=== PATIENT | female | born 1950 | race Caucasian/White ===

== ENCOUNTER 2022-11-16 10:43 | Outpatient (CLI) | payer BC, SELFPAY ==
--- NOTE | 2022-11-16 11:00 | ECG_ITS ---
Measurements Intervals [place] Rate: 98 P: OK: 0 QRS: -16 QRSD: 94 T: 16 QT: 350 QTc: 449 Interpretive Statements ATRIAL FIBRILLATION POOR R WAVE PROGRESSION, CONSIDER ANTERIOR INFARCT INFERIOR INFARCT, AGE INDETERMINATE BASELINE ARTIFACT- I, II, III, AVR, AVL, V3-V6 ABNORMAL ECG NO PREVIOUS ECG AVAILABLE FOR COMPARISON Electronically Signed On 11-16-2022 11:31:29 CDT by Silviano Lewis D.O.
[2022-11-16 11:48] LABS: Amylase 84 U/L (30-110); Lipase 140 U/L (23-300)
== END 2022-11-16 10:44 | disposition home or self-care (01) ==
PROVIDERS: PCP Internal Medicine; Visit Provider Surgery
DX: K80.10 Calculus of gallbladder with chronic cholecystitis without obstruction (principal); I10 Essential (primary) hypertension; Z01.818 Encounter for other preprocedural examination; R94.31 Abnormal electrocardiogram [ECG] [EKG]
CPT/HCPCS: 36415; 82150; 83690; 86850; 86900; 86901; 93005

== ENCOUNTER 2022-11-17 00:13 | Day surgery (SDC) | payer BC, SELFPAY ==
--- NOTE | 2022-11-13 13:49 | PC.NURSE ---
Report to the Outpatient Waiting Room, entrance under the green pavilion located off [facility], at time _1030 on date ___11/17/22____. Planned Procedure Time: 1230 . Time changes happen often and if your time is changed the preop area will call you the afternoon before. - You and your visitor will be asked to self-screen and do not enter if you have any COVID symptoms. - A mask is optional within the hospital at this time. Patients may have clear liquids (water, carbonated beverages, clear teas, apple juice) until 3 hours prior to surgery with a maximum of 20 ounces. - No food from midnight until time of surgery - Infants may have breast milk until 4 hours before surgery, infant formula 6 hours prior to surgery. - Children will be allowed to drink immediately following surgery. If applicable, please bring a bottle or sippy cup to assist with drinking. Juice, water, soda, and popsicles are readily available. For infants on formula, please bring formula the day of surgery. Pacifiers are allowed. Take the following medications with a SIP of water the morning of surgery: ____ATENOLOL,OLANZAPINE DO NOT STOP ANY OF YOUR OTHER PRESCRIPTION MEDICATIONS PRIOR TO SURGERY ?EXCEPT THE FOLLOWING Medications to discontinue per physician __ALL VITAMINS/SUPP 3 DAYS PRE OP.LAST DOSE 11/13/22. ELIQUIS PER DR EAGLE HIBICLENS SHOWER MORNING OF SURGERY. Please no make-up, nail hungarian, hairspray, perfume, deodorant, or body powder the day of surgery. No jewelry (including any body piercings) or valuables the day of surgery, leave them at home. Please take a shower or bath the night before, or the morning of, surgery with an antibacterial soap. Wear comfortable, loose fitting clothing. Children are encouraged to wear pajamas. - Jewelry must be removed prior to entering the operating room. Rings and piercings that are not removed may be cut off. - The hospital will not accept responsibility for valuables. - Please leave all valuables, including medications, at home the day of surgery. If you are going home after surgery, a licensed shag truck driver must drive you home. - NO public transportation without another adult if you receive anesthesia. - We recommend that an adult stay with you for 24 hours following discharge. - We also recommend that you do not drive, make important decision, drink alcoholic beverages, or take any drugs that were not prescribed by your health care provider for at least 24 hours after your discharge time. For Pediatric surgeries, we recommend two adults accompany the child home. Follow any additional instructions given to you from your surgeon. If you or anyone in your household have experienced Covid symptoms in the past week, please notify your surgeon or the nurse liaison at the phone number below for possible testing. Telephone instructions given to __PATIENT and asked if any additional questions and then verbalized understanding. Patient advised to call surgeon office or pre surgery nurse liaison [phone] if any additional questions.
[2022-11-13 15:09] VITALS: BMI 28.9
[2022-11-17] VITALS (10 sets, daily range): BP systolic 104–146; BP diastolic 59–93; PULSE 60–121; RESP 10–20; TEMP 36.2–37.1; O2SAT 98–100
[2022-11-17] MEDS: LACTATED RINGERS 1,000 ML 30 ML IV CONT ×2 (09:45→13:53)
[2022-11-17 10:24] LABS: Glucose Point of Care 106 mg/dl (65-105)
[2022-11-17] MEDS: KETOROLAC 15 MG/ML VIAL (*BKC) IV PUSH (10:30)
[2022-11-17] MEDS: ACETAMINOPHEN 500 MG TABLET 1000 MG PO (10:30)
--- NOTE | 2022-11-17 12:01 | WPDHPUPDATE1 ---
History and Physical Update Update Date/Time: 11/17/22 12:01 History and Physical has been reviewed, including an updated exam of the patient. There are NO changes in the patient's condition. Risks, benefits, and alternatives have been discussed and questions answered. Patient agrees to proceed with procedure.
--- NOTE | 2022-11-17 12:09 | P.PNAN_ITS ---
Anes - Eval Pre Procedure Procedure: Operation Date: 11/17/22 11:00 Proposed Procedures p Laparoscopic Cholecystectomy Possible open - Titi Pineda MD Date/Time: 11/17/22 12:09 Pre Op Diagnosis: chronic cholecystitis secondary to gall stones Patient Data Age: 71 Gender: F Height: 1.65 m Weight: 78.2 kg Last Vital Signs Temp 37.1 C 11/17/22 10:29 Pulse 60 11/17/22 10:29 Resp 14 11/17/22 10:29 BP 104/88 11/17/22 10:29 Pulse Ox 99 11/17/22 10:29 O2 Del Method Room Air 11/17/22 10:29 Allergies Allergy/AdvReac Type Severity Reaction Status Date / Time OCHOA Inhibitors Allergy Unknown Cough Verified 11/17/22 10:48 Sulfa (Sulfonamide Allergy Rash Verified 11/17/22 10:48 Antibiotics) Home Medications Medication Instructions Recorded Confirmed Type apixaban 5 mg tablet (Eliquis) 5 mg PO BID 10/24/22 11/17/22 History ascorbate calcium (vitamin C) 500 500 mg PO DAILY 10/24/22 11/13/22 History mg tablet atenolol 50 mg tablet 50 mg PO BID 10/24/22 11/17/22 History estradiol 0.5 mg tablet 0.5 mg PO DAILY 10/24/22 11/13/22 History hydrochlorothiazide 25 mg tablet 25 mg PO DAILY 10/24/22 11/13/22 History metformin 500 mg tablet,extended 500 mg PO DAILY 10/24/22 11/13/22 History release 24 hr olanzapine 2.5 mg tablet 2.5 mg PO EVERY OTHER DAY 10/24/22 11/13/22 History simvastatin 20 mg tablet 20 mg PO DAILY 10/24/22 11/13/22 History vitamin E mixed 400 unit capsule 400 unit PO DAILY 10/24/22 11/13/22 History cholecalciferol (vitamin D3) 50 50 mcg PO DAILY 11/13/22 11/13/22 History mcg (2,000 unit) tablet omega-3 fatty acids 1,000 mg PO DAILY 11/13/22 11/13/22 History Laboratory Tests 11/17/22 10:20 POC Capillary Glucose 106 H mg/dl (65-105) Patient hx anesthesia problems: none Family hx anesthesia problems: none Results Review: All pre-operative results and documents have been reviewed as part of the pre- operative evaluation. [facility] Past Medical History Medical History (Updated 11/17/22 @ 12:11 by Cathryn Lovell CRNA) A-fib Anxiety loop recorder, defibrillator 07/20, cardiac clearance on chart intermediate risk Brain aneurysm Diabetes High blood pressure High cholesterol Stroke 2021 Surgical History Surgical History History of bladder suspension procedure Hx of tonsillectomy S/P BENITO-[id number] (total abdominal hysterectomy and bilateral salpingo-oophorectomy) Social History Social History Smoking packs per day: 1 Smoking cigarettes per day: 20.0 Years smoked: 9 Smoking pack-years: 9.00 Smoking status: Former smoker Tobacco type: cigarettes Smoking end date: 04/30/78 Alcohol intake: never Substance use: never Living arrangements: with family Spiritual care concerns: No Exam Day of Procedure 11/17/22 12:09 Patient weight: normal Heart: other (afib) Lungs: clear to auscultation and normal air movement Airway: Mallampati scale class II Neurological: alert and oriented
--- NOTE | 2022-11-17 12:29 | P.PNAN_ITS ---
Anes - Eval Final PreProcedure Day of Procedure 11/17/22 12:29 Patient weight: overweight Heart: regular rate and rhythm Lungs: clear to auscultation and normal air movement Airway: Mallampati scale class II Neurological: alert and oriented Last oral intake: >/= 8 hours ASA classification: III Emergent: no Anesthetic plan: proceed Anesthesia type and monitoring: general ETT Results Review: All pre-operative results and documents have been reviewed as part of the pre- operative evaluation. Informed Consent: The patient's anesthetic plan and its attendant risks and benefits were discussed with the patient/family/POA. Questions were solicited and answers provided to the satisfaction of the patient/family/POA.
[2022-11-17] MEDS: ceFAZolin 2 GM/D5W 50 ML 2 GM/50 ML BAG IVPB (12:35)
[2022-11-17] MEDS: LIDO 1%/EPINEPHRINE/PF 1:200,000 30 ML VIAL 20 ML XX (13:35)
[2022-11-17] MEDS: BUPivacaine HCL 0.5% 10 ML AMP 20 ML INFILTRATE (13:36)
--- NOTE | 2022-11-17 13:49 | W.PM.PROC2 ---
Procedure Note - Detailed Date of Procedure 11/17/22 Pre-op Diagnosis Biliary colic secondary to gallbladder sludge and gallbladder dysfunction. Post-op Diagnosis Same Procedure Performed Laparoscopic cholecystectomy Surgeon Titi Pineda MD Perinatal Nurse FLORENTINO Hamm Anesthesia General Indications Patient is a 71-year-old female who presented with intermittent but very frequent right upper quadrant abdominal pain associated with eating. All foods was causing her problems. She had abdominal ultrasound performed showing gallbladder sludge. She then had a HIDA scan performed showed a low ejection fraction of gallbladder at 5% signifying significant dysfunction of the gallbladder. She presents now for elective laparoscopic cholecystectomy. Findings Minimal chronic inflammation of gallbladder with a few adhesions of the omentum to the gallbladder wall. No acute inflammation of the gallbladder. Description of Procedure After informed consent was obtained patient was brought to the operating room where she was placed supine position and general endotracheal anesthesia was administered. The abdomen was then prepped and draped in usual sterile fashion. A time-out was then performed correctly identifying the patient as well as procedure to be performed. She was given perioperative IV antibiotics. I 1st started by making a small incision in left upper quadrant and then utilizing a Optiview port and the abdomen with a direct optical insertion. Once inside the abdomen insufflated to adequate pneumoperitoneum of 15mmHg of CO2. Looking around the umbilicus were no adhesions areas I placed a 5mm Optiview port in the periumbilical position. I then placed additional 10mm epigastric trocar port and 2 right lateral subcostal 5mm trocar ports all under direct visualization. The gallbladder is visualized the right upper quadrant. It was distended and there were a few adhesions of the omentum to the gallbladder wall but there was no acute inflammation. The gallbladder was laparoscopic grasper the dome and elevated over the right half liver towards the right shoulder. A 2nd grasper was used to hold the gallbladder at the infundibulum. I then proceed to strip down omental adhesions to the infundibular gallbladder and then stripped down the visceroperitoneum until identified the cystic duct. The cystic duct was dissected out circumferentially. The cystic artery is identified dissected out circumferentially as well. Once I felt I had the critical view I then placed 2 clips proximally the cystic duct and 2 clips distally high on infundibular gallbladder. The cystic duct was then divided Endo Daniella. I then clipped and divided the cystic artery in a similar fashion. The gallbladder was then resected off of the liver bed utilizing electrocautery. Small amount of bleeding from liver bed was controlled electrocautery no problems. Once the gallbladder was free from the liver is placed into an Endo-Catch bag and brought out the epigastric port site. No bile was spilled. The gallbladder was palpated there were no gallstones within the gallbladder. It was sent to pathology for examination. I then irrigated out the right upper quadrant the abdomen gallbladder fossa copious amounts of sterile saline solution. Hemostasis was excellent. No evidence of bile leak was noted. I then aspirated the fluid from the right upper quadrant of the abdomen from the pelvis. Then removed all the trocar ports under visualization all port sites appeared hemostatic. I then allowed the abdomen decompressed. I then irrigated out the port sites sterile saline solution and hemostasis was good. I then closed the epigastric 10mm trocar port fascial defect utilizing 0 Vicryl suture placed in a figure-eight fashion. The port sites were then all closed at skin level utilizing a running subcuticular 4-0 Monocryl suture. The incisions were then cleaned the skin glue was applied. The patient eliana
[2022-11-17] MEDS: METOPROLOL TARTRATE INJ 5 MG/5 ML VIAL IV PUSH (14:21)
[2022-11-17 14:25] LABS: Glucose Point of Care 97 mg/dl (65-105)
--- NOTE | 2022-11-17 14:29 | SUR.PHASEI ---
called dr dickens about afibrillation with heart rates 110-120,orders received. metoprolol given.
== END 2022-11-17 15:58 | disposition home or self-care (01) ==
PROVIDERS: PCP Internal Medicine; Visit Provider Surgery
PROC: 0FT44ZZ Resection of Gallbladder, Percutaneous Endoscopic Approach (ICD-10-PCS; CPT 47562; principal; 2022-11-17 11:00)
DX: K80.10 Calculus of gallbladder with chronic cholecystitis without obstruction (principal); I48.91 Unspecified atrial fibrillation; E11.9 Type 2 diabetes mellitus without complications; I10 Essential (primary) hypertension; E78.00 Pure hypercholesterolemia, unspecified; F41.9 Anxiety disorder, unspecified; Z86.73 Personal history of transient ischemic attack (TIA), and cerebral infarction without residual deficits; Z87.891 Personal history of nicotine dependence; Z79.01 Long term (current) use of anticoagulants; Z79.84 Long term (current) use of oral hypoglycemic drugs
CPT/HCPCS: 47562; 82948; 88304; A9270; C1713; J0690; J1170; J1885; J2250; J2405; J2704; J2710; J3010; J7030; J7120